=== PATIENT | male | born 1960 | race Caucasian/White ===

== ENCOUNTER 2017-03-04 11:01 | Emergency (ER) | payer MEDICARE, OTHER ==
[~2017-03-04] VITALS: Ht 180.3 cm; Wt 59.4 kg
[2017-03-04] MEDS ORDERED: IPRATRPIUM/ALBUTEROL 0.5/2.5MG 3 ML NEBU. ONE (11:22)
[2017-03-04] MEDS ORDERED: IPRATRPIUM/ALBUTEROL 0.5/2.5MG 3 ML NEBU. NEB ONE (11:45)
--- NOTE | 2017-03-04 12:18 | RAD ---
Indication fall. Right rib pain. A single view of the chest was obtained. Comparison is made to an examination 05/25/2008. Films targeted to right ribs were also obtained. There are probable background changes of emphysema or fibrosis. There is some volume loss in the left mid and lower lung field which may reflect chronic scarring. Atelectasis or pneumonia are not excluded. There is slight blunting of the left costophrenic angle probably reflecting scar. No pneumothorax is seen. Films targeted to right ribs demonstrate recent or acute fractures involving the lateral ninth and 10th and 11th ribs. IMPRESSION: Chronic changes in the chest. Volume loss in the left mid and lower lung field see above discussion. Recent or acute fractures on the right, 9-11
[2017-03-04] MEDS ORDERED: HYDROcodone/APAP 10/325 1 TAB TABLET PO ONE (12:20)
[2017-03-04] MEDS ORDERED: ONDANSETRON ODT 4 MG TAB.RAPDIS PO ONE (12:20)
[2017-03-04 12:23] VITALS: BP 126/71
--- NOTE | 2017-03-04 12:29 | PHYS DOC ---
General Chief Complaint: RIB PAIN Stated Complaint: FALL/RIB PAIN Time Seen by MD: 11:07 Source: patient Exam Limitations: no limitations Problems: History of Present Illness Initial Comments Pt is 56/M to ED c/o fall injuries. Pt states two nights ago he tripped and fell landing on his right side. Since that time he's had severe right sided lateral low rib pain worse with deep breaths and movement, better with rest. No fever/chills/myalgias, pt has dry chronic cough is heavy smoker with COPD history. Pt states he also drinks alcohol regularly, intake not daily and consists of "a few 40oz/day." Pt states he was drinking at time of fall but remembers the event, denies head trauma/LOC/headache or neck pain. Occurred: other (2 nights ago) Severity: severe Injuries/Pain Location: chest Context: tripped Loss of Consciousness: no loss of consciousness Modifying Factors: worse with jarring, worse with movement, improves with pain medication, improves with rest Associated Symptoms: other Allergies: Coded Allergies: No Known Drug Allergies (Unverified , 03/04/17) Past Medical History Medical History: no medical history Surgical History: noncontributory Social History Smoker: cigarettes Alcohol: heavy (no h/o withdrawal or D-Ts) Drugs: none Review of Systems Constitutional: denies chills, denies fever, denies malaise Eyes: denies blurred vision, denies drainage, denies foreign body sensation Ears, Nose, Mouth, Throat: denies ear pain, denies ear discharge, denies nose pain, denies nose discharge, denies epistaxis, denies mouth pain, denies throat pain Respiratory: see HPI, denies wheezing Cardiovascular: denies chest pain, denies palpitations, denies syncope Gastrointestinal: denies abdominal pain, denies diarrhea, denies nausea, denies vomiting Genitourinary: denies dysuria, denies frequency, denies hematuria Musculoskeletal: see HPI, denies back pain, denies joint swelling, denies neck pain Physical Exam General Appearance: WD/WN, mild distress Head: no evidence of injury (neg zepeda/raccoon eyes no face/scalp tenderness) Eyes: bilateral eye normal inspection, bilateral eye PERRL, bilateral eye EOMI Ears, Nose, Mouth, Throat: hearing grossly normal, no evidence of ENT injury ( no ear/nose drainage no fluid behind TMs b/l), no dental injury Neck: non-tender, full range of motion, normal alignment Cardiovascular/Respiratory: normal peripheral pulses (TTP lateral aspect right lower ribs no swell/ecchy no paradoxical motion), no respiratory distress Gastrointestinal: non tender, soft Back: no CVA tenderness, no vertebral tenderness Extremities: normal range of motion, non-tender Neurologic/Psychiatric: 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 PHYSICIAN: ERA WOLFE DO REASON: fall, R rib pain PROCEDURE: RIBS RIGHT AND PA CHEST Indication fall. Right rib pain. A single view of the chest was obtained. Comparison is made to an examination 05/25/2008. Films targeted to right ribs were also obtained. There are probable background changes of emphysema or fibrosis. There is some volume loss in the left mid and lower lung field which may reflect chronic scarring. Atelectasis or pneumonia are not excluded. There is slight blunting of the left costophrenic angle probably reflecting scar. No pneumothorax is seen. Films targeted to right ribs demonstrate recent or acute fractures involving the lateral ninth and 10th and 11th ribs. IMPRESSION: Chronic changes in the chest. Volume loss in the left mid and lower lung field see above discussion. Recent or acute fractures on the right, 9-11 DICTATED AND SIGNED BY: DIONY GARZA MD DATE: 03/04/17 1213 CC: PCP,LINK; ERA WOLFE DO ~ I discussed findings and treatment plan. Discussed alcohol abuse and prescription pain meds. Pt agrees not to take pain meds with etoh, advised to stop drinking alcohol heavily as well as to stop smoking. Empiric antibiotics due to RAD questionable infiltrate. Departure Time of Disposition: 12:41 Disposition: 01 HOME, SELF-CARE Diagnosis: Right rib fractures 9-11, fall, alcohol/tobacco de Condition: STABLE Patient Instructions: Alcohol Problems, Fall Prevention and Home Safety, Easy- to-Read, Rib Fracture, [id number], Smokeless Tobacco Use Additional Instructions: Discontinue alcohol and tobacco abuse, seek medical assistance if necessary. Ice to painful area 20 minutes, 4-6 times daily. Rx: norco 5mg #20, zithromax, albuterol MDI Try to keep activity to "pain-free." Follow up with a doctor next week. Return to ED with new or changing symptoms. ERA WOLFE DO March 04, 2017 12:29
[2017-03-04] MEDS ORDERED: AZIT250T PO (12:40)
[2017-03-04] MEDS ORDERED: ALBU18HF IH (12:40)
[2017-03-04] MEDS ORDERED: HYDR-971 PO (12:40)
== END 2017-03-04 12:55 | disposition home or self-care (01) ==
LOC: ER 11:01
DX: S22.41XA Multiple fractures of ribs, right side, initial encounter for closed fracture (principal); F17.210 Nicotine dependence, cigarettes, uncomplicated; F10.10 Alcohol abuse, uncomplicated; W01.0XXA Fall on same level from slipping, tripping and stumbling without subsequent striking against object, initial encounter; Y93.89 Activity, other specified; Y92.89 Other specified places as the place of occurrence of the external cause; Y99.8 Other external cause status
CPT/HCPCS: 71101; 94640; 99284; J7620; Q0162